=== PATIENT | male | born 1995 | race Caucasian/White ===

== ENCOUNTER 2024-06-03 12:45 | Emergency (ER) | payer BC ==
[2024-06-03 13:53] LABS: PT Prothrombin Time 14.6 SECONDS (9.4-12.5); Protime INR 1.34
--- NOTE | 2024-06-03 13:53 | RAD REPORT ---
EXAM DESCRIPTION: Jasiel Single View06/03/2024 1:31 pm CLINICAL HISTORY: Rectal bleeding. Anemia COMPARISON: none FINDINGS: Calcified granuloma right lung. The lungs appear clear of acute infiltrate. The heart is n ormal size IMPRESSION: No acute abnormalities displayed
[2024-06-03 14:08] LABS: ALT/SGPT 16 U/L (16-61); Albumin 3.6 g/dL (3.4-5.0); Albumin/Globulin Ratio 0.7 (1.1-1.8); Alkaline Phosphatase 64 U/L (45-117); Anion Gap 12.1 mEq/L (5.0-15.0); BUN Blood Urea Nitrogen 13 mg/dL (7-18); Bicarbonate 23 mEq/L (21-32); Bilirubin Direct 0.2 mg/dL (0-0.2); Bilirubin Indirect, Calculated 0.4 mg/dL (0.2-0.8); Bilirubin Total 0.6 mg/dL (0.2-1.0); Globulin 5.1 g/dL (2.3-3.5); Glomerular Filtration Rate 84 ml/min (=/>90); Glucose Level 120 mg/dL (74-106); Magnesium 2.3 mg/dL (1.6-2.4); Potassium 3.1 mEq/L (3.5-5.1); Protein, Total 8.7 g/dL (6.4-8.2); Sodium Level 127 mEq/L (136-145); Troponin High Sensitivity 29.9 pg/mL (<58.9)
[2024-06-03 14:09] LABS: AST/SGOT < 10 U/L (15-37)
[2024-06-03] MEDS ORDERED: NA CHLORIDE 0.9% 1,000 ML ONE ×2 (14:16→15:14)
[2024-06-03] MEDS ORDERED: POTASSIUM 25 MEQ EFFERV TAB ONE (14:16)
[2024-06-03 14:19] LABS: Absolute Basophils 0.1 K/uL (0-0.5); Absolute Lymphocytes (CBC) 0.9 K/uL (0.7-4.9); Absolute Neutrophil 11.5 K/uL (1.8-8.0); Basophils % 0.4 % (0-1.3); Eosinophils % 0.1 % (0-4.4); Hematocrit 29.2 % (39.6-49.0); Hemoglobin 8.4 g/dL (13.6-17.9); MCH 15.9 pg (27.0-35.0); MCHC 28.7 g/dL (32.0-36.0); MCV 55.4 fL (80-100); MPV 8.2 fL (7.6-11.3); Monocytes % 19.5 % (3.3-12.3); Nucleated Red Blood Cells % 0.1 % (0-0); Platelets 454 thou/uL (152-406); RBC Red Blood Cell Count 5.26 M/uL (4.33-5.43); Red Cell Distribution Width 20.2 % (12.1-15.2)
[2024-06-03 14:37] LABS: Band Neutrophils 11 % (0-1); Differential Total Cells Count 100; Lymphocytes 7 % (15-42); Metamyelocytes 1 % (0-0); Monocytes 18 % (0-10); Segmented Neutrophils 60 % (40-80)
[2024-06-03 14:39] LABS: Anisocytosis 1+; Blood Morphology Comment NOTED (NOT SEEN); Hypochromasia 3+; Platelet Estimate ADEQ; Platelets, Giant FEW OBSERVED; Poikilocytosis 1+; Polychromasia 1+
--- NOTE | 2024-06-03 14:59 | RAD REPORT ---
EXAM DESCRIPTION: CT - Abdomen Pelvis W/Wo Contrast - 06/03/2024 2:24 pm CLINICAL HISTORY: Abdominal pain/rectal bleeding COMPARISON: None TECHNIQUE: Computed axial tomography of the abdomen and pelvis was obtained. Unenhanced and enhanced images were taken. 100 cc Isovue 300 was administered intravenously. Oral contrast was not given whi ch limits evaluation the bowel All CT scans are performed using dose optimization technique as appropriate and may include automated exposure control or mA/KV adjustment according to patient size. FINDINGS: The liver, spleen, pancreas, adrenals and left kidney are unremarkable. 3 millimeter calculus right kidney. No hydronephrosis. Normal appendix Mild to moderate thickening wall of the sigmoid and descending colon. No free air Small umbilical hernia IMPRESSION: Mild to moderate left colitis
--- NOTE | 2024-06-03 15:25 | EDPHYS ---
Physician Documentation [facility] Name: Siva Wright Age: 28 yrs Sex: Male : 1995 Arrival Date: 06/03/2024 Time: 12:45 Bed 2 Private MD: ED Physician Nickolas Cooper HPI: 06/03 13:20 This 28 yrs old Male presents to ER via Ambulatory with complaints of Abnormal Lab cp Results, Rectal Bleeding. 13:20 Onset: The symptoms/episode began/occurred for past 8 months. cp 13:20 The patient presents to the emergency department with rectal bleeding, with multiple cp such episodes. Abdominal pain: none is appreciated. Associated signs and symptoms: Pertinent negatives: constipation, fever, syncope, near-syncope. 13:20 Severity of symptoms: in the emergency department the symptoms are unchanged despite cp home interventions. Historical: - Allergies: 13:00 No Known Allergies; ll1 - PMHx: 13:00 None; ll1 - PSHx: 13:00 None; ll1 - Immunization history:: Adult Immunizations up to date. - Infectious Disease History:: Denies. - Social history:: Smoking status: Patient denies any tobacco usage or history of. ROS: 13:25 Constitutional: Negative for body aches, chills, fever, poor PO intake, cp 13:25 Eyes: Negative for injury, pain, redness, and discharge, cp 13:25 ENT: Negative for drainage from ear(s), ear pain, sore throat, difficulty swallowing, difficulty handling secretions, 13:25 Cardiovascular: Negative for chest pain, edema, palpitations, 13:25 Respiratory: Negative for cough, shortness of breath, wheezing, 13:25 Abdomen/GI: Positive for rectal bleeding, Negative for abdominal pain, nausea, vomiting, and diarrhea, constipation, 13:25 Neuro: Negative for altered mental status, syncope, near syncope, 13:25 All other systems are negative, Exam: 13:30 Constitutional: The patient appears in no acute distress, alert, awake, cp non-diaphoretic, non-toxic, well developed, well nourished, anxious, 13:30 Head/Face: Normocephalic, atraumatic. cp 13:30 Eyes: Periorbital structures: appear normal, Conjunctiva: normal, no exudate, no injection, Sclera: no appreciated abnormality, Lids and lashes: appear normal, bilaterally, 13:30 ENT: External ear(s): are unremarkable, Nose: is normal, Mouth: Lips: moist, Oral mucosa: pink and intact, moist, Posterior pharynx: is normal, airway is patent, no erythema, no exudate, 13:30 Chest/axilla: Inspection: normal, 13:30 Cardiovascular: Rate: tachycardic, Rhythm: regular, Edema: is not appreciated, JVD: is not appreciated, 13:30 Respiratory: the patient does not display signs of respiratory distress, Respirations: normal, no use of accessory muscles, no retractions, labored breathing, is not present, Breath sounds: are clear throughout, no decreased breath sounds, no stridor, no wheezing, 13:30 Abdomen/GI: Inspection: abdomen appears normal, Palpation: abdomen is soft and non-tender, in all quadrants, Rectal exam: hemorrhoid(s), are not appreciated, no gross blood noted on exam. 13:30 Neuro: Orientation: to person, place \T\ time. Mentation: is normal, Motor: moves all fours, 14:07 ECG was reviewed by the Attending Physician. cp Vital Signs: 12:59 BP 201 / 99; Pulse 138; Resp 20; Temp 97.5; Pulse Ox 100% on R/A; Weight 117.93 kg; ll1 Height 6 ft. 1 in. ; Pain 0/10; 14:24 BP 172 / 99 Supine; Pulse 114; ph 14:26 BP 167 / 96 Sitting; Pulse 124; ph 14:27 BP 140 / 92; Pulse 138; Resp 18; Pulse Ox 100% on R/A; ph 14:39 Pulse 112; ph 16:00 BP 148 / 78; Pulse 110; Resp 18; Temp 97.5; Pulse Ox 99% on R/A; ph 17:25 BP 154 / 89; Pulse 105; Resp 18; Temp 98.7; Pulse Ox 100% on R/A; ph 12:59 Body Mass Index 34.30 (117.93 kg, 185.42 cm) ll1 12:59 Pain Scale: Adult ll1 MDM: 13:05 Patient medically screened. cp 14:00 Differential diagnosis: gastritis, diverticulitis, hemorrhoids, hemorrhagic shock, cp colitis, anemia. 16:00 ED course: transfer declined by hospitalist at [facility], DR Na Granda. cp 17:00 I considered the following discharge prescriptions or medication management in the emergency department Medications were administered in the Emergency Department. See MAR. 17:00 Management of patient was discussed with the following: Hospitalist: DR eHrrera cp \T\[facility] will accept transfer. Independent interpretation of the following test(s) in the Emergency Department EKG: See my EKG interpretation above. Counseling: I had a detailed discussion with the patient and/or guardian regarding the historical points, exam findings, and any diagnostic results supporting the discharge/admit diagnosis, lab results, radiology results, the need to transfer to another facility, [facility] does not immediately have the required specialist. Response to treatment: the patient's symptoms have mildly improved after treatment. 06/04 07:04 Data reviewed:. rn 06/03 13:19 Order name: Basic Metabolic Panel; Complete Time: 14:42 06/03 14:42 Interpretation: Normal except: NA 127; K 3.1; CL 95; GLUC 120; GFR 84. 06/03 13:19 Order name: CBC with Diff; Complete Time: 14:42 cp 06/03 14:43 Interpretation: Normal except: WBC 15.60; HGB 8.4; HCT 29.2; MCV 55.4; MCH 15.9; MCHC cp 28.7; PLT 454; THONY% 74.0; RDW 20.2; LYM% 6.0; MN% 19.5; NEUT A 11.5; MNA 3.0. 06/03 13:19 Order name: LFT's; Complete Time: 14:42 cp 06/03 15:08 Interpretation: Normal except: AST < 10; TP 8.7; GLOB 5.1; A/G 0.7. 06/03 13:19 Order name: Magnesium; Complete Time: 14:42 cp 06/03 13:19 Order name: PT-INR; Complete Time: 13:55 cp 06/03 13:19 Order name: Troponin HS; Complete Time: 14:42 cp 06/03 15:51 Interpretation: Reviewed. 06/03 14:33 Order name: Manual Differential; Complete Time: 14:42 EDMS 06/03 14:43 Interpretation: Normal except: BANDS [F] 11; LYM 7; MONO 18; BASOS 3; META 1. 06/03 15:09 Order name: Lactate w/ 2H reflex if indic.; Complete Time: 16:09 06/03 16:09 Interpretation: Reviewed. 06/03 15:09 Order name: Blood Culture Adult (2) 06/03 15:26 Order name: Type And Screen 06/03 16:02 Order name: ABO/RH no charge; Complete Time: 16:09 [facility] 06/03 16:41 Order name: Antibody Identification [facility] 06/03 13:19 Order name: XRAY Chest (1 view); Complete Time: 13:55 06/03 14:06 Order name: CT Abd/Pelvis- W/WO Contrast; Complete Time: 15:07 06/03 13:19 Order name: EKG; Complete Time: 13:20 06/03 13:19 Order name: Orthostatics; Complete Time: 14:55 06/03 13:19 Order name: Cardiac monitoring; Complete Time: 13:46 06/03 13:19 Order name: EKG - Nurse/Tech; Complete Time: 14:55 06/03 13:19 Order name: IV Saline Lock; Complete Time: 13:46 06/03 13:19 Order name: Labs collected and sent; Complete Time: 13:46 06/03 13:19 Order name: O2 Per Protocol; Complete Time: 13:46 06/03 13:19 Order name: O2 Sat Monitoring; Complete Time: 13:46 cp EC/05 14:07 Rate is 112 beats/min. Rhythm is regular. ID interval is normal. QRS interval is cp normal. QT interval is normal. T waves are Inverted in lead aVR. Interpreted by me. Reviewed by me. Administered Medications: 14:23 Drug: NS 0.9% IV 1000 ml IV at 1 bolus Per protocol; 1000 mL bolus Route: IV; Rate: 1 ph bolus; Site: left antecubital; 16:00 Follow up: Response: No adverse reaction; IV Status: Completed infusion; IV Intake: ph 1000ml 14:55 Drug: Potassium PO Effervescent Tablet 50 mEq PO once; dissolve in 4 ounces of water or ph juice Route: PO; 18:15 Follow up: Response: No adverse reaction ph 15:53 Drug: NS 0.9% IV 1000 ml IV at 1 bolus Per protocol; 1000 mL bolus Route: IV; Rate: 1 ph bolus; Site: left antecubital; 17:00 Follow up: Response: No adverse reaction; IV Status: Completed infusion; IV Intake: ph 1000ml 15:53 Drug: Piperacillin-Tazobactam IVPB 3.375 grams IVPB once over 60 mins; (mix in NS 100 ph mL) Route: IVPB; Infused Over: 60 mins; Site: left antecubital; 17:00 Follow up: Response: No adverse reaction; IV Status: Completed infusion ph Disposition: 06/04 07:04 Co-signature as Attending Physician, Nickolas Cooper MD I agree with the assessment and rn plan of care. Disposition Summary: 06/03/24 15:24 Transfer Ordered Notes: Transfer Location: [facility] cp Reason: Higher level of care cp Condition: Stable cp Problem: new cp Symptoms: have improved cp Accepting Physician: DR Herrera(06/03/24 18:37) ph Diagnosis - GI Bleed/ Gastrointestinal hemorrhage, unspecified cp - Anemia, unspecified cp - Left sided colitis with rectal bleeding cp - Hypokalemia cp Forms: - Medication Reconciliation Form cp - SBAR form cp Signatures: Dispatcher [employer] EDNickolas Taylor MD MD rn Hall, Patricia, RN RN Christopher Cordova PA PA cp Lewis, Lynsay, RN RN ll1 Corrections: (The following items were deleted from the chart) 07 13:56 13:56 URINE DRUG SCREEN+UC.LAB.BRZ ordered. EDMS EDMS 13:56 13:56 Urinalysis W/Microscopic+U.LAB.BRZ ordered. EDMS EDMS 15:32 15:24 doctor cp cp 17:07 15:32 doctor cp cp 18:37 17:07 DR Herrera cp ph 06/04 04:02 07 13:25 This 28 yrs old Male presents to ER via Ambulatory with complaints of cp Abnormal Lab Results, Rectal Bleeding. cp
--- NOTE | 2024-06-03 15:25 | ER ---
Nurse's Notes [facility] Name: Siva Wright Age: 28 yrs Sex: Male : 1995 Arrival Date: 06/03/2024 Time: 12:45 Bed 2 Private MD: Diagnosis: GI Bleed/ Gastrointestinal hemorrhage, unspecified;Anemia, unspecified;Left sided colitis with rectal bleeding;Hypokalemia Presentation: 06/03 12:51 Chief complaint: Patient states: Rectal bleeding with low HGB 7.8. Coronavirus screen: ll1 Client denies travel out of the [place] in the last 14 days. At this time, the client does not indicate any symptoms associated with coronavirus-19. Ebola Screen: Patient denies travel to an Ebola-affected area in the 21 days before illness onset. Initial Sepsis Screen: Does the patient meet any 2 criteria? No. Patient's initial sepsis screen is negative. Does the patient have a suspected source of infection? No. Patient's initial sepsis screen is negative. Risk Assessment: Do you want to hurt yourself or someone else? Patient reports no desire to harm self or others. 12:51 Method Of Arrival: Ambulatory [facility] 12:51 Acuity: JENNIFER 2 [facility] 12:59 Onset of symptoms was November 30, 2023. [facility] Triage Assessment: 12:58 General: Appears uncomfortable, ill, Behavior is calm, cooperative, appropriate for 1 age, Reports feeling ill for fatigue for. Neuro: Reports dizziness, headache weakness. Cardiovascular: Reports fatigue, lightheadedness. GI: Reports rectal bleeding, bloody stool, nausea. Historical: - Allergies: 13:00 No Known Allergies; ll1 - PMHx: 13:00 None; ll1 - PSHx: 13:00 None; ll1 - Immunization history:: Adult Immunizations up to date. - Infectious Disease History:: Denies. - Social history:: Smoking status: Patient denies any tobacco usage or history of. Screenin:27 [facility] ED Fall Risk Assessment (Adult) History of falling in the last 3 months, ph including since admission No falls in past 3 months (0 pts) Confusion or Disorientation No (0 pts) Intoxicated or Sedated No (0 pts) Impaired Gait No (0 pts) Mobility Assist Device Used No (0 pt) Altered Elimination No (0 pt) Score/Fall Risk Level 0 - 2 = Low Risk Oriented to surroundings, Maintained a safe environment, Hourly rounding (assess needs \T\ fall precautionary measures) done. Abuse screen: Denies threats or abuse. Denies injuries from another. Nutritional screening: No deficits noted. Tuberculosis screening: No symptoms or risk factors identified. Assessment: 14:27 General: Appears in no apparent distress. comfortable, Behavior is calm, cooperative, ph appropriate for age. 14:40 Pain: Denies pain. Neuro: Level of Consciousness is awake, alert, obeys commands, ph Oriented to person, place, time, situation, Reports dizziness, weakness. Cardiovascular: Reports fatigue, vomiting, Denies chest pain. Respiratory: Airway is patent Respiratory effort is even, unlabored, Respiratory pattern is regular, symmetrical. GI: Reports constipation, diarrhea, rectal bleeding, nausea, vomiting, Patient currently denies abdominal pain. : No signs and/or symptoms were reported regarding the genitourinary system. Derm: Skin is pale. Musculoskeletal: Circulation, motion, and sensation intact. Range of motion: intact in all extremities. 16:30 Reassessment: Patient appears in no apparent distress at this time. Patient and/or ph family updated on plan of care and expected duration. Pain level reassessed. Patient is alert, oriented x 3, equal unlabored respirations, skin warm/dry/pink. Patient denies pain at this time. 17:55 Reassessment: Patient appears in no apparent distress at this time. Patient and/or ph family updated on plan of care and expected duration. Pain level reassessed. Patient is alert, oriented x 3, equal unlabored respirations, skin warm/dry/pink. Report called to MONI Ca at [facility] ED, awaiting EMS for transport. 18:36 Reassessment: Patient appears in no apparent distress at this time. Patient and/or ph family updated on plan of care and expected duration. Pain level reassessed. Patient is alert, oriented x 3, equal unlabored respirations, skin warm/dry/pink. EMS at bedside, report given to EMT-P, pt transferred. Vital Signs: 12:59 BP 201 / 99; Pulse 138; Resp 20; Temp 97.5; Pulse Ox 100% on R/A; Weight 117.93 kg; ll1 Height 6 ft. 1 in. ; Pain 0/10; 14:24 BP 172 / 99 Supine; Pulse 114; ph 14:26 BP 167 / 96 Sitting; Pulse 124; ph 14:27 BP 140 / 92; Pulse 138; Resp 18; Pulse Ox 100% on R/A; ph 14:39 Pulse 112; ph 16:00 BP 148 / 78; Pulse 110; Resp 18; Temp 97.5; Pulse Ox 99% on R/A; ph 17:25 BP 154 / 89; Pulse 105; Resp 18; Temp 98.7; Pulse Ox 100% on R/A; ph 12:59 Body Mass Index 34.30 (117.93 kg, 185.42 cm) ll1 12:59 Pain Scale: Adult ll1 ED Course: 12:48 Patient arrived in ED. mg5 12:50 Arm band placed on. ll1 12:52 Triage completed. ll1 13:02 Adry Mora, RN is Primary Nurse. aa5 13:05 Christopher Betancourt PA is PHCP. cp 13:05 Sherwin Meier MD is Attending Physician. cp 13:05 Nickolas Cooper MD is Attending Physician. cp 13:24 Laura Michael, MONI is Primary Nurse. ph 13:28 Patient has correct armband on for positive identification. Placed in gown. Bed in low ph position. Call light in reach. Side rails up X 1. Client placed on continuous cardiac and pulse oximetry monitoring. NIBP monitoring applied. plastic surgery assistant on. 13:33 XRAY Chest (1 view) In Process Unspecified. EDMS 13:46 Initial lab(s) drawn, by me, sent to lab. EKG done, by ED staff, reviewed by Christopher ZENG. Inserted saline lock: 20 gauge in left antecubital area, using aseptic technique. Blood collected. 14:25 CT Abd/Pelvis- W/WO Contrast In Process Unspecified. EDMS 15:32 initiated a transfer with CORBIN from the [facility]. eb 15:45 connected the hospitalist independent contractor for [facility] with Christopher Zeng for eb patient transfer consultation. 15:[address] Na Granda again with Christopher Zeng for patient transfer consultation again/.eb 16:04 initiated a transfer with Marybeth from the [facility] transfer antelope. eb 16:27 \T\[address] [facility] has no GI independent contractor/ \T\1624 [facility] has no GI/ \T\1626 [facility] has not GI independent contractor/ they will have to decline the patient in transfer. 16:32 initiated a transfer with Will from the [facility] transfer center. eb 16:51 per Francy from the [facility] transfer center they will have to decline the patient in eb transfer due to being at capacity. 17:04 connected the emergency room doctor independent contractor for [facility] with Christopher Zeng for eb patient transfer consultation. 17:07 administrative approval given by CORBIN Yuan / patient has been accepted to [facility] ED/ Dr. Jayme Acuna has accepted the patient in transfer/ report to be called to [phone]. 17:25 No provider procedures requiring assistance completed. Patient transferred, IV remains ph in place. Administered Medications: 14:23 Drug: NS 0.9% IV 1000 ml IV at 1 bolus Per protocol; 1000 mL bolus Route: IV; Rate: 1 ph bolus; Site: left antecubital; 16:00 Follow up: Response: No adverse reaction; IV Status: Completed infusion; IV Intake: ph 1000ml 14:55 Drug: Potassium PO Effervescent Tablet 50 mEq PO once; dissolve in 4 ounces of water or ph juice Route: PO; 18:15 Follow up: Response: No adverse reaction ph 15:53 Drug: NS 0.9% IV 1000 ml IV at 1 bolus Per protocol; 1000 mL bolus Route: IV; Rate: 1 ph bolus; Site: left antecubital; 17:00 Follow up: Response: No adverse reaction; IV Status: Completed infusion; IV Intake: ph 1000ml 15:53 Drug: Piperacillin-Tazobactam IVPB 3.375 grams IVPB once over 60 mins; (mix in NS 100 ph mL) Route: IVPB; Infused Over: 60 mins; Site: left antecubital; 17:00 Follow up: Response: No adverse reaction; IV Status: Completed infusion ph Medication: 13:28 VIS not applicable for this client. ph Intake: 16:00 IV: 1000ml; Total: 1000ml. ph 17:00 IV: 1000ml; Total: 2000ml. ph Outcome: 15:24 ER care complete, transfer ordered by MD. bernard 18:16 Transferred by ground EMS [place]. to [facility], [facility], Transfer form ph completed. X-rays sent w/ patient. 18:16 Condition: stable 18:16 Instructed on the need for transfer, 18:37 Patient left the ED. ph Signatures: Dispatcher [employer] EDAdry Zhu RN RN aa5 Laura Michael RN RN ph Christpoher Betancourt PA PA cp Botello, Elizabeth eb Lewis, Lynsay, RN RN ll1 Rachelle Pyle mg5 Corrections: (The following items were deleted from the chart) 14:42 14:27 General: Appears ph ph 18:36 18:16 Transferred by ground EMS to [facility], [facility], Transfer form ph completed. X-rays sent w/ patient. ph
[2024-06-03] MEDS ORDERED: NA CHLORIDE 0.9% 100 ML ONE (15:29)
[2024-06-03] MEDS ORDERED: PIPERACIL/TAZO 3.375 GM VIAL IV ONE (15:30)
[2024-06-03] MEDS ORDERED: ONDANSETRON 4 MG/2 ML VIAL ONE (17:50)
[2024-06-03 18:43] VITALS: O2SAT 100
[2024-06-03 18:58] VITALS: BP 154/89; TEMP 98.7
--- NOTE | 2024-06-05 10:33 | EKG ---
Test Date: 2024-06-03 Test Time: 14:01:22 Merchandise Displayer: PH MEASUREMENT RESULTS: Intervals: Rate: 112 SD: 124 QRSD: 82 QT: 322 QTc: 439 [place]: P: 45 SD: 124 QRS: 60 T: 41 INTERPRETIVE STATEMENTS: Sinus tachycardia Otherwise normal ECG No previous ECG available for comparison Electronically Signed On 06-05-24 10:31:26 CDT by Anthony Neff
== END 2024-06-03 18:37 | disposition short-term general hospital (02) ==
LOC: ER 12:45
DX: D64.9 Anemia, unspecified (principal); K51.511 Left sided colitis with rectal bleeding; E87.6 Hypokalemia
CPT/HCPCS: 96365; 96361; 93005; 87040 ×2; 85025; 80048; 36415; 86900; 83735; 86850; 85610; 86870; 86901; 80076; 83605; 84484; 74178; 71045; 99285; Q9967; J2543; J2405; J7030 ×2